=== PATIENT | female | born 1960 | race Hispanic/Latino ===

== ENCOUNTER 2020-07-30 22:24 | Inpatient (IN) | payer MEDICARE ==
[~2020-07-30] VITALS: Ht 152.4 cm; Wt 53.6 kg
[2020-07-30 23:25] LABS: BASOPHILS % (AUTO) 0.1 % (0.0-5.0); EOSINOPHILS % (AUTO) 1.1 % (0.0-8.0); HEMATOCRIT 34.1 % (36-48); LYMPHOCYTES % (AUTO) 17.4 % (21.0-51.0); MEAN CORPUSCULAR HEMOGLOBIN 32.6 pg (27.0-33.0); MEAN CORPUSCULAR HGB CONC 32.6 g/dL (32.0-36.0); MONOCYTES % (AUTO) 5.1 % (3.0-13.0); NEUTROPHILS % (AUTO) 75.8 % (40.0-77.0); PLATELET COUNT (AUTO) 307 K/uL (130-400); RED BLOOD CELL COUNT(AUTO) 3.41 MIL/uL (4.00-5.50); RED CELL DISTRIBUTION WIDTH 14.4 % (11.0-15.5)
[2020-07-30 23:39] LABS: BILIRUBIN,TOTAL 0.4 mg/dL (0.2-1.0); CREATININE 7.6 mg/dL (0.5-1.5); TOTAL PROTEIN, SERUM 9.4 g/dL (6.0-8.3)
[2020-07-30 23:47] LABS: INR 1.11 (0.85-1.15)
[2020-07-30 23:49] LABS: PARTIAL THROMBOPLASTIN TIME 27.3 SEC (26.3-35.5)
[2020-07-30 23:51] LABS: POTASSIUM 6.9 mmol/L (3.5-5.1)
[2020-07-30 23:56] LABS: B-TYPE NATRIURETIC PEPTIDE 2230 pg/mL (0-100)
[2020-07-31] MEDS ORDERED: KAYEXALATE 15GM/60ML ONE (00:08)
[2020-07-31] MEDS ORDERED: CALCIUM GLUC 1GM/10ML VIAL IV ONE (00:09)
[2020-07-31] MEDS ORDERED: SODIUM BICARB 50MEQ 50ML VIAL 50 ML ONE (00:09)
[2020-07-31] MEDS ORDERED: INSULIN HUMULIN R 100 UNIT/ML 3ML ONE (00:10)
[2020-07-31] MEDS ORDERED: DEXTROSE 50%-WATER 50 ML DISP.SYRIN IV ONE (00:10)
[2020-07-31] MEDS ORDERED: FUROSEMIDE 40MG VIAL ONE (00:49)
[2020-07-31] MEDS ORDERED: DIPHENHYDRAMINE HCL 25 MG CAPSULE PO PRN (01:15)
[2020-07-31] MEDS ORDERED: CEFTRIAXONE 1G VIAL IVP SCH (01:15)
[2020-07-31] MEDS ORDERED: GUAIFENESIN-DM 200/20 MG 10 ML PO PRN (01:15)
[2020-07-31] MEDS ORDERED: LACTULOSE 20 GM/30 ML UDCUP PO PRN (01:15)
[2020-07-31] MEDS ORDERED: ONDANSETRON 4MG INJ IV PRN (01:15)
[2020-07-31] MEDS ORDERED: MAG/ALUM/SIMETH 30 ML UDCUP PO PRN (01:15)
[2020-07-31] MEDS ORDERED: DiphenhydrAMINE HCL 50 MG/ML VIAL IV PRN (01:15)
[2020-07-31] MEDS ORDERED: ACETAMINOPHEN 325 MG TAB PO PRN ×3 (01:15→17:30)
[2020-07-31] MEDS ORDERED: NITROGLYCERIN 0.4 MG SL TAB SL PRN ×2 (01:15→17:30)
[2020-07-31] MEDS ORDERED: DOXYCYCLINE 100MG+NS 250ML IV SCH (02:00)
[2020-07-31] MEDS: PHARMACY COMMUNICATION MISC SCH ×3 (03:00→21:00)
[2020-07-31 03:28] LABS: CREATININE 6.4 mg/dL (0.5-1.5); POTASSIUM 5.4 mmol/L (3.5-5.1)
[2020-07-31] MEDS ORDERED: ERGOCALCIFEROL (VITAMIN D2) 50,000 UNIT CAPSULE ONE (03:36)
[2020-07-31] MEDS ORDERED: DEXAMETHASONE SOD PHOSPHATE 10MG/ML 1ML VIAL ONE (03:36)
[2020-07-31] MEDS ORDERED: DOXYCYCLINE 100MG+NS 250ML 250 ML IV ONE (03:36)
[2020-07-31 04:45] VITALS: BP 118/63
[2020-07-31] MEDS ORDERED: FAMO20TA8 PO (05:27)
[2020-07-31] MEDS ORDERED: AMLO-258 PO (05:27)
[2020-07-31] MEDS ORDERED: SEVE0.8P3 PO (05:27)
[2020-07-31] MEDS ORDERED: TRAM50TA4 PO (05:27)
[2020-07-31] MEDS ORDERED: FOLI1TAB61 PO (05:27)
[2020-07-31] MEDS ORDERED: ARIP10TA54 PO (05:27)
[2020-07-31] MEDS ORDERED: GABA-529 PO (05:27)
[2020-07-31] MEDS ORDERED: FURO-151 PO (05:27)
[2020-07-31] MEDS ORDERED: SIMV-46 PO (05:27)
[2020-07-31] MEDS ORDERED: ONDA4TAB10 PO (05:27)
[2020-07-31] MEDS: DEXAMETHASONE SOD PHOSPHATE 4 MG/ML 1ML VIAL IVP SCH (05:56)
[2020-07-31 07:36] VITALS: BP 123/69
[2020-07-31] MEDS ORDERED: ERGOCALCIFEROL (VITAMIN D2) 50,000 UNIT CAPSULE PO ONE (09:00)
[2020-07-31] MEDS ORDERED: LEVOFLOXACIN 250 MG/D5W 50ML 50 ML IVPB SCH (09:00)
[2020-07-31] MEDS ORDERED: ACETYLCYSTEINE 600 MG CAPSULE PO SCH (09:00)
[2020-07-31] MEDS ORDERED: FAMOTIDINE 20MG VIAL IV SCH (09:00)
[2020-07-31] MEDS ORDERED: VANCOMYCIN PROTOCOL PER PHARMACY IV SCH (09:30)
[2020-07-31] MEDS ORDERED: COMPOUND IV REFRIGERATED 1 EACH IVSOLN MISC PRN (09:30)
[2020-07-31] MEDS: ASCORBIC ACID 500 MG TAB PO SCH (10:07)
[2020-07-31] MEDS: ZINC SULFATE 220 CAPSULE PO SCH (10:07)
[2020-07-31] MEDS: HEPARIN 5,000 UNIT VIAL SQ SCH ×3 (10:08→20:36)
[2020-07-31] MEDS ORDERED: ONDANSETRON ODT 4MG TAB PO PRN (10:15)
[2020-07-31] MEDS: SEVELAMER HCL 800 MG TABLET PO SCH ×2 (11:50→15:56)
[2020-07-31 11:56] VITALS: BP 140/80
[2020-07-31] MEDS ORDERED: [UNRECOGNIZED DRUG - OTHER] MISC SCH (14:45)
[2020-07-31 15:00] LABS: HEMOGLOBIN A1C 6.7 % (4.0-6.0)
[2020-07-31 16:01] VITALS: BP 112/59
[2020-07-31] MEDS ORDERED: 0.9%NACL 1000ML 1,000 ML IV PRN (17:30)
[2020-07-31] MEDS ORDERED: ALBUMIN FOR BP SUPPORT MISC PRN (17:30)
[2020-07-31] MEDS ORDERED: HEPARIN 5,000 UNIT VIAL IJ PRN (17:30)
[2020-07-31] MEDS ORDERED: 0.9%NACL 1000ML IV PRN (17:30)
[2020-07-31 20:07] VITALS: BP 102/50
[2020-07-31] MEDS ORDERED: SIMVASTATIN 20 MG TABLET PO SCH (21:00)
[2020-07-31] MEDS ORDERED: INSULIN GLARGINE 100 UNITS/ML 10 ML VIAL SQ SCH (21:00)
[2020-07-31] MEDS ORDERED: ARIPIPRAZOLE 5 MG TABLET PO SCH (21:00)
[2020-07-31 23:32] VITALS: BP 100/51
[2020-08-01] VITALS (31 sets, daily range): BP systolic 58–143; BP diastolic 32–82
[2020-08-01 00:54] LABS: ABG BASE EXCESS -14.2 mmol/L (-2.0-3.0); ABG HCO3 17.4 mmol/L (21.0-28.0); ABG OXYGEN SATURATION 99.3 % (95.0-99.0); ABG PCO2 67 mmHg (32-45)
[2020-08-01 00:57] LABS: HEMATOCRIT 34.3 % (36-48); MEAN CORPUSCULAR HEMOGLOBIN 32.5 pg (27.0-33.0); MEAN CORPUSCULAR HGB CONC 29.7 g/dL (32.0-36.0); MEAN CORPUSCULAR VOLUME 109.2 fL (79-99); NUCLEATED RED BLOOD CELLS 0.2 % (0.0-0.19); PLATELET COUNT (AUTO) 271 K/uL (130-400); RED BLOOD CELL COUNT(AUTO) 3.14 MIL/uL (4.00-5.50); RED CELL DISTRIBUTION WIDTH 14.4 % (11.0-15.5); WHITE BLOOD COUNT (AUTO) 24.3 K/uL (4.8-10.8)
[2020-08-01 01:10] LABS: ALBUMIN 2.5 g/dL (3.5-5.0); BILIRUBIN,TOTAL 0.4 mg/dL (0.2-1.0); CREATININE 4.8 mg/dL (0.5-1.5); MAGNESIUM 3.3 mg/dL (1.80-2.40); POTASSIUM 5.2 mmol/L (3.5-5.1); TOTAL PROTEIN, SERUM 8.2 g/dL (6.0-8.3)
[2020-08-01] MEDS ORDERED: PROPOFOL 1000 MG/100 ML 100 ML IV SCH (01:15)
[2020-08-01] MEDS ORDERED: FENTANYL CITRATE PF 0.05 MG/ML 1,000 MCG in 0.9%NACL 100ML 100 ML IVPB SCH (01:15)
[2020-08-01] MEDS ORDERED: LORAZEPAM 2 MG/ML 1 ML VIAL ONE (01:41)
[2020-08-01] MEDS ORDERED: LORAZEPAM 2 MG/ML 1 ML VIAL IVP ONE (01:45)
[2020-08-01] MEDS ORDERED: EPINEPHRINE 1 MG/ML 30ML VIAL IJ ONE (01:59)
[2020-08-01] MEDS ORDERED: NOREPINEPHRIN 4MG/NS 250ML 250 ML IV SCH (02:00)
[2020-08-01] MEDS ORDERED: NOREPINEPHRINE BITARTRATE 1 MG/1 ML ML IV ONE (02:05)
[2020-08-01] MEDS ORDERED: 0.9% NACL 250ML 500 ML IV ONE (02:06)
[2020-08-01] MEDS ORDERED: FENTANYL 2500MCG+NS 250ML 250 ML IV ONE (02:58)
[2020-08-01 04:12] LABS: BASOPHILS % (AUTO) 0.2 % (0.0-5.0); EOSINOPHILS % (AUTO) 0.2 % (0.0-8.0); HEMATOCRIT 30.4 % (36-48); LYMPHOCYTES % (AUTO) 2.8 % (21.0-51.0); MEAN CORPUSCULAR HEMOGLOBIN 31.5 pg (27.0-33.0); MEAN CORPUSCULAR HGB CONC 30.6 g/dL (32.0-36.0); MEAN CORPUSCULAR VOLUME 103.1 fL (79-99); MONOCYTES % (AUTO) 4.7 % (3.0-13.0); NEUTROPHILS % (AUTO) 89.2 % (40.0-77.0); PLATELET COUNT (AUTO) 322 K/uL (130-400); RED BLOOD CELL COUNT(AUTO) 2.95 MIL/uL (4.00-5.50); RED CELL DISTRIBUTION WIDTH 14.5 % (11.0-15.5)
[2020-08-01 04:14] LABS: WHITE BLOOD COUNT (AUTO) 36.4 K/uL (4.8-10.8)
[2020-08-01 04:20] LABS: INR 1.26 (0.85-1.15); PROTHROMBIN TIME 13.4 SEC (9.6-11.6)
[2020-08-01 04:23] LABS: ALBUMIN 2.4 g/dL (3.5-5.0); BILIRUBIN,TOTAL 0.4 mg/dL (0.2-1.0); CREATININE 4.7 mg/dL (0.5-1.5); CRP QUANTITATIVE 146.6 mg/L (0.00-9.0); PHOSPHORUS 8.1 mg/dL (2.5-4.9); POTASSIUM 5.6 mmol/L (3.5-5.1); TOTAL PROTEIN, SERUM 7.7 g/dL (6.0-8.3)
[2020-08-01 04:39] LABS: BAND NEUTROPHILS % (MANUAL) 11 % (0-2); LYMPHOCYTES % (MANUAL) 8 % (22-44); MAN.DIFF COMMENT-IMPRESSION MANUAL DIFFERENTIAL; MONOCYTES % (MANUAL) 7 % (2-9); PLATELET MORPHOLOGY COMMENT ADEQUATE; SEGMENTED NEUTROPHILS % 74 % (40-70)
[2020-08-01] MEDS: DEXAMETHASONE SOD PHOSPHATE 4 MG/ML 1ML VIAL IVP SCH (06:29)
[2020-08-01] MEDS ORDERED: FAMOTIDINE 20MG TAB PO SCH (09:00)
[2020-08-01] MEDS ORDERED: Vitamin B Complex/Vit C/Folic Acid PO SCH (09:00)
[2020-08-01] MEDS: ZINC SULFATE 220 CAPSULE PO SCH (10:26)
[2020-08-01] MEDS: ASCORBIC ACID 500 MG TAB PO SCH (10:26)
[2020-08-01] MEDS: SEVELAMER HCL 800 MG TABLET PO SCH (10:39)
[2020-08-01] MEDS ORDERED: PHENYLEPHRINE HCL 10 MG in 0.9% NACL 250ML 250 ML IV PRN (11:15)
[2020-08-01 12:30] LABS: BASOPHILS % (AUTO) 0.2 % (0.0-5.0); HEMATOCRIT 33.9 % (36-48); MEAN CORPUSCULAR HEMOGLOBIN 31.8 pg (27.0-33.0); MEAN CORPUSCULAR HGB CONC 29.8 g/dL (32.0-36.0); MEAN CORPUSCULAR VOLUME 106.6 fL (79-99); NEUTROPHILS % (AUTO) 92.2 % (40.0-77.0); NUCLEATED RED BLOOD CELLS 0.1 % (0.0-0.19); PLATELET COUNT (AUTO) 346 K/uL (130-400); RED BLOOD CELL COUNT(AUTO) 3.18 MIL/uL (4.00-5.50); RED CELL DISTRIBUTION WIDTH 14.6 % (11.0-15.5); WHITE BLOOD COUNT (AUTO) 29.1 K/uL (4.8-10.8)
[2020-08-01] MEDS ORDERED: PHARMACY COMMUNICATION MISC SCH (13:30)
[2020-08-01] MEDS ORDERED: LEVOFLOXACIN 500 MG/D5W 100 ML 100 ML IV SCH (14:00)
[2020-08-01] MEDS ORDERED: PHENYLEPHRINE HCL 100 MG in 0.9% NACL 250ML 250 ML IV SCH (14:45)
[2020-08-01 15:27] LABS: ABG BASE EXCESS -1.9 mmol/L (-2.0-3.0); ABG HCO3 26.1 mmol/L (21.0-28.0); ABG OXYGEN SATURATION 96.6 % (95.0-99.0); ABG PCO2 61 mmHg (32-45)
[2020-08-01] MEDS ORDERED: VANCOMYCIN PROTOCOL PER PHARMACY IV SCH (15:30)
[2020-08-01 15:48] LABS: MEAN CORPUSCULAR HEMOGLOBIN 32.1 pg (27.0-33.0); MEAN CORPUSCULAR HGB CONC 30.7 g/dL (32.0-36.0); MEAN CORPUSCULAR VOLUME 104.5 fL (79-99); NUCLEATED RED BLOOD CELLS 0.1 % (0.0-0.19); PLATELET COUNT (AUTO) 179 K/uL (130-400); RED BLOOD CELL COUNT(AUTO) 2.87 MIL/uL (4.00-5.50); RED CELL DISTRIBUTION WIDTH 14.6 % (11.0-15.5)
[2020-08-01 15:57] LABS: CREATININE 4.9 mg/dL (0.5-1.5); POTASSIUM 5.5 mmol/L (3.5-5.1)
[2020-08-01] MEDS ORDERED: VANCOMYCIN 750MG + NS 250 ML IV SCH ×2 (16:00)
[2020-08-01 16:01] LABS: ALBUMIN 2.2 g/dL (3.5-5.0); BILIRUBIN,TOTAL 0.3 mg/dL (0.2-1.0); MAGNESIUM 1.8 mg/dL (1.80-2.40); PHOSPHORUS 7.3 mg/dL (2.5-4.9); TOTAL PROTEIN, SERUM 7.2 g/dL (6.0-8.3)
[2020-08-01 16:18] LABS: LYMPHOCYTES % (MANUAL) 4 % (22-44); MONOCYTES % (MANUAL) 1 % (2-9); MYELOCYTES % 1 % (0-0); SEGMENTED NEUTROPHILS % 94 % (40-70)
[2020-08-01 16:23] LABS: MAN.DIFF COMMENT-IMPRESSION MANUAL DIFFERENTIAL; PLATELET MORPHOLOGY COMMENT ADEQUATE
[2020-08-01] MEDS ORDERED: INSULIN HUMULIN R 100 UNIT/ML 3ML SQ SCH (16:30)
[2020-08-01 16:39] LABS: ABG BASE EXCESS 0.9 mmol/L (-2.0-3.0); ABG HCO3 30.5 mmol/L (21.0-28.0); ABG OXYGEN SATURATION 91.8 % (95.0-99.0); ABG PCO2 81 mmHg (32-45)
[2020-08-01] MEDS ORDERED: INSULIN GLARGINE 100 UNITS/ML 10 ML VIAL SQ SCH (21:00)
[2020-08-03 09:10] LABS: HEPATITIS Bs ANTIGEN SCREEN P Negative (Negative)
[2020-08-03] MEDS ORDERED: LEVOFLOXACIN 250 MG/D5W 50ML 50 ML IVPB SCH (14:00)
[2020-08-07] MEDS ORDERED: VANCOMYCIN 750MG + NS 250 ML IV SCH ×2 (09:00)
== END 2020-08-01 16:39 | disposition expired | DRG 208 ==
LOC: EDH 22:24 → EDHIP 07-31 01:05 → 2DH 07-31 04:16 → 2AH 08-01 03:09
PROVIDERS: ADMIT Family Medicine; ATTEND Family Medicine
PROC: 5A1D70Z Performance of Urinary Filtration, Intermittent, Less than 6 Hours Per Day (ICD-10-PCS; 2020-07-31)
PROC: 5A1935Z Respiratory Ventilation, Less than 24 Consecutive Hours (ICD-10-PCS; principal; 2020-08-01)
PROC: 0BH17EZ Insertion of Endotracheal Airway into Trachea, Via Natural or Artificial Opening (ICD-10-PCS; 2020-08-01)
PROC: 02HV33Z Insertion of Infusion Device into Superior Vena Cava, Percutaneous Approach (ICD-10-PCS; 2020-08-01)
PROC: B548ZZA Ultrasonography of Superior Vena Cava, Guidance (ICD-10-PCS; 2020-08-01)
PROC: 5A12012 Performance of Cardiac Output, Single, Manual (ICD-10-PCS; 2020-08-01)
DX: U07.1 COVID-19 (principal); J12.82 Pneumonia due to coronavirus disease 2019; N18.6 End stage renal disease; J80 Acute respiratory distress syndrome; I13.2 Hypertensive heart and chronic kidney disease with heart failure and with stage 5 chronic kidney disease, or end stage renal disease; J44.0 Chronic obstructive pulmonary disease with (acute) lower respiratory infection; E87.1 Hypo-osmolality and hyponatremia; I46.9 Cardiac arrest, cause unspecified; I25.10 Atherosclerotic heart disease of native coronary artery without angina pectoris; E87.5 Hyperkalemia; R00.1 Bradycardia, unspecified; E11.22 Type 2 diabetes mellitus with diabetic chronic kidney disease; I50.9 Heart failure, unspecified; Z99.2 Dependence on renal dialysis; Z91.19 Patient's noncompliance with other medical treatment and regimen; Z91.15 Patient's noncompliance with renal dialysis
CPT/HCPCS: 36415; 36600; 70450; 71045; 74018; 80048; 80053; 82435; 82550; 82728; 82803; 82947; 82948; 83036; 83605; 83615; 83735; 83880; 84100; 84132; 84145; 84295; 84484; 85018; 85025; 85027; 85378; 85610; 85730; 86140; 86701; 86704; 86706; 87040; 87340; 87390; 87426; 87520; 87804; 90935; 92950; 93005; 99291; G0378; J0171; J0610; J1100; J1644; J1815; J1940; J1956; J2060; J2370; J2704; J3010; J3370; J3490; J7050; J7070; Q0163